=== PATIENT | male | born 1970 | race Caucasian/White ===

== ENCOUNTER 2019-03-03 06:05 | Inpatient (IN) | payer MEDICAID ==
[~2019-03-03] VITALS: Ht 177.8 cm; Wt 110.7 kg
[2019-03-03] MEDS ORDERED: ASPIRIN 81MG TABLET PO ONE (07:15)
[2019-03-03 07:47] LABS: BASOPHILS % 0.3 % (0.0-2.0); EOSINOPHILS % 9.1 % (0.0-5.0); HEMATOCRIT. 39.4 % (42.0-52.0); HEMOGLOBIN. 13.5 g/dL (14.0-18.0); LYMPHOCYTES % 11.8 % (20.0-50.0); MEAN CORPUSCULAR HEMOGLOBIN 30.5 pg (28.0-32.0); MEAN CORPUSCULAR VOLUME 89.3 fL (80.0-94.0); MEAN PLATELET VOLUME 10.1 fl (7.4-10.4); NEUTROPHILS % 70.8 % (40.0-76.0); PLATELET 206 x1000/uL (130-400); RED BLOOD CELL COUNT 4.41 mill/uL (4.7-6.1); RED CELL DISTRIBUTION WIDTH 13.9 % (11.6-14.6)
[2019-03-03 07:49] LABS: CHLORIDE 106 mEq/L (98-107)
[2019-03-03 07:51] LABS: INR 2.2; PROTHROMBIN TIME 21.6 sec (9.6-11.0)
[2019-03-03 07:54] LABS: ETHANOL BLOOD < 10 mg/dL
[2019-03-03] MEDS ORDERED: NITROGLYCERIN 0.4MG TABLET SL SL ONE (08:30)
[2019-03-03 09:30] VITALS: BP_SYST 153; BP_SYST 183; BP_DIAS 95
[2019-03-03] MEDS ORDERED: MAGNESIUM/ALUMINUM HYDROXIDE/SIMETHICONE 30ML UDC PO PRN (10:45)
[2019-03-03] MEDS ORDERED: DOCUSATE SODIUM 100MG CAPSULE PO PRN (10:45)
[2019-03-03] MEDS ORDERED: ONDANSETRON HCL 4MG/2ML INJ IV PRN (10:45)
[2019-03-03] MEDS ORDERED: IPRATROPIUM/ALBUTEROL 0.5-3(2.5)MG/3ML NEB NEB PRN (10:45)
[2019-03-03] MEDS ORDERED: LORAZEPAM 0.5MG TABLET PO PRN (10:45)
[2019-03-03] MEDS ORDERED: ENOXAPARIN 40MG/0.4ML SYR SUBCUT SCH (10:45)
[2019-03-03] MEDS ORDERED: NITROGLYCERIN 0.4MG TABLET SL SL PRN (10:45)
[2019-03-03] MEDS ORDERED: KETOROLAC 30MG/ML VIAL IV PRN (10:45)
[2019-03-03] MEDS ORDERED: ACETAMINOPHEN 325MG TABLET PO PRN (10:45)
[2019-03-03] MEDS ORDERED: GUAIFENESIN 200MG/10ML SUGAR FREE UDC PO PRN (10:45)
[2019-03-03] MEDS ORDERED: CLONIDINE 0.1MG TABLET PO PRN (10:45)
[2019-03-03] MEDS ORDERED: WARF-53 PO (10:47)
[2019-03-03] MEDS ORDERED: METF-414 PO (10:47)
[2019-03-03] MEDS ORDERED: GABA-531 PO (10:47)
[2019-03-03] MEDS ORDERED: LISI40TA4 PO (10:47)
[2019-03-03] MEDS ORDERED: HYDR-4135 PO (10:47)
[2019-03-03] MEDS ORDERED: CARV25TA47 PO (10:47)
[2019-03-03] MEDS ORDERED: ATOR-2 PO (10:47)
[2019-03-03] MEDS ORDERED: ASPI-1393 PO (10:47)
[2019-03-03] MEDS ORDERED: DEXTROSE 50% WATER 50ML SYRINGE IV PRN (11:15)
[2019-03-03] MEDS: FAMOTIDINE 20MG TABLET PO SCH ×2 (11:26→22:38)
[2019-03-03] MEDS: SUCRALFATE 1 G/10 ML UDC PO SCH ×3 (11:26→22:33)
[2019-03-03] MEDS: AMLODIPINE 10MG TABLET PO SCH (11:27)
[2019-03-03 12:00] VITALS: BP 180/99
[2019-03-03] MEDS: BLOOD SUGAR DIAGNOSTIC STRIP TEST SCH ×3 (12:10→21:00)
[2019-03-03] MEDS: INSULIN LISPRO 100 UNITS/ML SUBCUT SCH ×3 (12:26→21:00)
[2019-03-03 16:00] VITALS: BP_SYST 90
[2019-03-03 16:43] LABS: CREATINE KINASE 160 IU/L (39-308)
[2019-03-03 16:45] LABS: CREATINE KINASE MB FRACTION 1.6 ng/mL (0.5-3.6)
[2019-03-03] MEDS ORDERED: KETOROLAC 15MG/ML VIAL IV PRN (17:27)
[2019-03-03] MEDS ORDERED: INFLUENZA VIRUS VACCINE(AFLURIA) 0.5ML SYR IM ONE (17:30)
[2019-03-03] MEDS ORDERED: PNEUMOCOCCAL 23-VAL P-SAC VAC 0.5 ML IM ONE (17:30)
[2019-03-03 18:04] LABS: *AMPHETAMINES SCREEN URINE NEGATIVE (NEGATIVE); *BENZODIAZEPINES SCREEN URINE NEGATIVE (NEGATIVE); *COCAINE SCREEN URINE NEGATIVE (NEGATIVE); CANNABINOID URINE SCREEN NEGATIVE (NEGATIVE); METHADONE URINE SCREEN NEGATIVE (NEGATIVE); OPIATES URINE SCREEN NEGATIVE (NEGATIVE); PHENCYCLIDINE URINE SCREEN NEGATIVE (NEGATIVE)
[2019-03-03 18:05] LABS: *BARBITURATES SCREEN URINE NEGATIVE (NEGATIVE)
[2019-03-03 20:00] VITALS: BP 166/99
[2019-03-03] MEDS ORDERED: WARFARIN SODIUM 5MG TABLET PO SCH (20:00)
[2019-03-03] MEDS ORDERED: ZOLPIDEM TARTRATE 5MG TABLET PO PRN (21:00)
[2019-03-03] MEDS ORDERED: ATORVASTATIN CALCIUM 40MG TABLET PO SCH (21:00)
[2019-03-03] MEDS: LISINOPRIL 20MG TABLET PO SCH (22:37)
[2019-03-04] VITALS: BP 157/88
[2019-03-04 00:30] LABS: CREATINE KINASE 243 IU/L (39-308)
[2019-03-04 01:21] LABS: CREATINE KINASE MB FRACTION 1.6 ng/mL (0.5-3.6)
[2019-03-04 04:00] VITALS: BP 142/79
[2019-03-04 06:34] LABS: BASOPHILS % 0.5 % (0.0-2.0); EOSINOPHILS % 11.2 % (0.0-5.0); HEMATOCRIT. 39.3 % (42.0-52.0); HEMOGLOBIN. 13.6 g/dL (14.0-18.0); LYMPHOCYTES % 22.7 % (20.0-50.0); MEAN CORPUSCULAR HEMOGLOBIN 30.5 pg (28.0-32.0); MEAN CORPUSCULAR VOLUME 88.1 fL (80.0-94.0); MEAN PLATELET VOLUME 10.7 fl (7.4-10.4); MONOCYTES % 12.1 % (2.0-8.0); NEUTROPHILS % 53.5 % (40.0-76.0); PLATELET 206 x1000/uL (130-400); RED BLOOD CELL COUNT 4.46 mill/uL (4.7-6.1)
[2019-03-04 06:39] LABS: CHLORIDE 108 mEq/L (98-107)
[2019-03-04] MEDS: BLOOD SUGAR DIAGNOSTIC STRIP TEST SCH (06:49)
[2019-03-04] MEDS: SUCRALFATE 1 G/10 ML UDC PO SCH (06:52)
[2019-03-04 07:01] LABS: LDL CHOLESTEROL 49 mg/dL (5-100)
[2019-03-04 07:04] LABS: HDL CHOLESTEROL 33 mg/dL (40-59)
[2019-03-04 07:08] LABS: INR 2.1; PROTHROMBIN TIME 20.7 sec (9.6-11.0)
[2019-03-04] MEDS: INSULIN LISPRO 100 UNITS/ML SUBCUT SCH (07:50)
[2019-03-04 08:00] VITALS: BP 159/89
[2019-03-04] MEDS: AMLODIPINE 10MG TABLET PO SCH (08:27)
[2019-03-04] MEDS: FAMOTIDINE 20MG TABLET PO SCH (08:28)
[2019-03-04] MEDS: LISINOPRIL 20MG TABLET PO SCH (08:28)
[2019-03-04] MEDS ORDERED: ASPIRIN 325MG EC TABLET PO SCH (09:00)
[2019-03-04] MEDS ORDERED: ENOXAPARIN 30MG/0.3ML SYR SUBCUT SCH (09:00)
[2019-03-04 11:34] VITALS: BP 170/95
[2019-03-04] MEDS ORDERED: WARFARIN SODIUM 5MG TABLET PO SCH (18:00)
== END 2019-03-04 12:20 | disposition home or self-care (01) | DRG 198 ==
LOC: ER 06:05 → 6WST 08:23 → ENRESERV 08:50
PROVIDERS: ADMIT Internal Medicine; ATTEND Internal Medicine
DX: R07.89 Other chest pain (principal); I25.2 Old myocardial infarction; E11.9 Type 2 diabetes mellitus without complications; E78.00 Pure hypercholesterolemia, unspecified; I10 Essential (primary) hypertension; R79.1 Abnormal coagulation profile; E78.5 Hyperlipidemia, unspecified; Z79.01 Long term (current) use of anticoagulants; Z79.82 Long term (current) use of aspirin
CPT/HCPCS: 36415; 71045; 80048; 80061; 80305; 80320; 82550; 82553; 82962; 83036; 83880; 84484; 90686; 90732; 93005; 93970; 99285; G0480